=== PATIENT | male | born 1995 | race Hispanic/Latino ===

== ENCOUNTER 2017-11-29 01:43 | Emergency (ER) | payer SELFPAY ==
--- NOTE | 2017-11-29 01:54 | C.PDOC ---
History Of Present Illness patient was found sleeping in the street . strong etoh on breath. Pt denies suicidal or homicidal ideation. Pleasant , cooperative Time Seen by Provider: 11/29/17 01:53 Chief Complaint (Nursing): Substance Abuse History Per: Patient, EMS History/Exam Limitations: no limitations Onset/Duration Of Symptoms: Hrs Current Symptoms Are (Timing): Still Present Suicide/Self Injury Attempted (Context): None Modifying Factor(s): Alcohol Severity: None Associated Symptoms: denies: Anger, Anxiety, Agitation Involuntary Hold By: None Recent travel outside of the [place]: No Additional History Per: EMS Past Medical History Reviewed: Historical Data, Nursing Documentation, Vital Signs Vital Signs: Last Vital Signs Temp 97.5 F L 11/29/17 02:00 Pulse 75 11/29/17 02:53 Resp 18 11/29/17 02:53 BP 121/71 11/29/17 02:53 Pulse Ox 99 11/29/17 02:53 Family History: States: No Known Family Hx Review Of Systems Review Of Systems: ROS cannot be obtained secondary to pt's inabilty to answer questions. Respiratory: Negative for: Cough Gastrointestinal: Negative for: Abdominal Pain Musculoskeletal: Negative for: Back Pain Skin: Negative for: Rash Neurological: Negative for: Weakness Psych: Negative for: Anxiety Physical Exam - Physical Exam Appears: Non-toxic, No Acute Distress Skin: Warm, Dry Head: Normacephalic Eye(s): bilateral: Normal Inspection Oral Mucosa: Moist Neck: Supple Chest: Symmetrical Cardiovascular: Rhythm Regular Respiratory: No Rales, No Rhonchi, No Wheezing Gastrointestinal/Abdominal: Soft, No Tenderness Back: Normal Inspection Extremity: Normal ROM Extremity: Bilateral: Atraumatic Neurological/Psych: Oriented x3 Gait: Steady ED Course And Treatment - Laboratory Results Result Diagrams: 11/29/17 02:30 O2 Sat by Pulse Oximetry: 98 Pulse Ox Interpretation: Normal Progress Note: 2:51 pt clinically sober. Pt's friends came to pick him up and assume responsabity for him. Ambulating without difficulty Reevaluation Time: 02:51 Reassessment Condition: Improved Disposition Counseled Patient/Family Regarding: Studies Performed, Diagnosis, Need For Followup - Disposition Referrals: [facility] [Outside] Disposition: HOME/ ROUTINE Disposition Time: 02:50 Condition: FAIR Instructions: Alcohol Abuse and Alcoholism (DC) Forms: [facility] (Kinyarwanda) - Clinical Impression Clinical Impression: Alcohol intoxication
[2017-11-29] MEDS ORDERED: Sodium Chloride 0.9% 1,000 ML IV ONE (02:12)
[2017-11-29 02:14] VITALS: RESP 18; TEMP 97.5; BMI 26.6
[2017-11-29 02:33] LABS: BASO % 0.7 % (0.0-2.0); EOS % 0.2 % (0.0-4.0); HEMOGLOBIN 14.5 g/dL (12.0-18.0); LYMPH # 1.4 K/uL (1.0-4.3); LYMPH % 32.9 % (20.0-40.0); MEAN CELL VOLUME 92.4 fL (80.0-94.0); MEAN CORPUSCULAR HEMOGLOBIN 32.3 pg (27.0-31.0); MEAN PLATELET VOLUME 10.6 fL (7.2-11.7); MONO # 0.4 K/uL (0.0-0.8); MONO % 10.3 % (0.0-10.0); NEUT # 2.3 K/uL (1.8-7.0); NEUT % 55.9 % (50.0-75.0); NRBC % 0.1 % (0.0-2.0); RBC 4.48 Mil/uL (4.40-5.90); RED CELL DISTRIBUTION WIDTH 12.2 % (11.5-14.5); WHITE BLOOD COUNT 4.1 K/uL (4.8-10.8)
[2017-11-29 02:55] VITALS: BP 121/71; PULSE 75
[2017-11-29 02:56] LABS: URINE BILIRUBIN NEGATIVE (NEGATIVE); URINE BLOOD 2+ (NEGATIVE); URINE CLARITY Clear (Clear); URINE COLOR Yellow (YELLOW); URINE GLUCOSE (UA) NORMAL (Normal); URINE LEUKOCYTE ESTERASE NEG Leu/uL (Negative); URINE PROTEIN NEGATIVE (NEGATIVE); URINE UROBILINOGEN NORMAL mg/dL (0.2-1.0)
[2017-11-29 03:04] VITALS: O2SAT 98
[2017-11-29 03:04] LABS: ALB/GLOB RATIO 1.7 (1.0-2.1); ALBUMIN 4.4 g/dL (3.5-5.0); ALT/SGPT 23 U/L (21-72); AST/SGOT 32 U/L (17-59); BLOOD UREA NITROGEN 12 mg/dL (9-20); CALCIUM 8.9 mg/dl (8.6-10.4); GFR NON-AFRICAN AMERICAN > 60
[2017-11-29 03:14] LABS: BARBITURATES, UR NEGATIVE (NEGATIVE); BENZODIAZEPINES, UR NEGATIVE (NEGATIVE); OPIATES, UR NEGATIVE (NEGATIVE); PHENCYCLIDINE, UR NEGATIVE (NEGATIVE)
== END 2017-11-29 02:55 | disposition home or self-care (01) ==
LOC: SUPCPDRO 01:43 → C.ER 01:43
DX: F10.129 Alcohol abuse with intoxication, unspecified (principal)
CPT/HCPCS: 80053; 81001; 82948; 83735; 84100; 85025; 99283; G0480